=== PATIENT | female | born 1960 | race Caucasian/White ===

== ENCOUNTER 2022-03-06 12:41 | Day surgery (SDC) | payer BC ==
[~2022-03-06] VITALS: Ht 172.7 cm; Wt 91.1 kg
[~2022-03-06 12:41] MED LIST: ASCO500; B Complete1 EACH; CHOL10002; OMEP20ER; Prinivil10 MG; Zanaflex2 M1
[2022-03-06] MEDS ORDERED: Famotidine10 MG/1 ML (12:57)
[2022-03-06] MEDS ORDERED: CLIMARA1 EACH (12:57)
== END 2022-03-06 15:58 | disposition home or self-care (01) ==
LOC: ORSCSDS 12:41
PROVIDERS: Student in an Organized Health Care Education/Training Program
PROC: 0DB68ZX Excision of Stomach, Via Natural or Artificial Opening Endoscopic, Diagnostic (ICD-10-PCS; principal; 2022-03-06 14:00)
PROC: 0DBN8ZX Excision of Sigmoid Colon, Via Natural or Artificial Opening Endoscopic, Diagnostic (ICD-10-PCS; principal; 2022-03-06 14:00)
PROC: 0DB58ZX Excision of Esophagus, Via Natural or Artificial Opening Endoscopic, Diagnostic (ICD-10-PCS; principal; 2022-03-06 14:00)
PROC: 0DBL8ZX Excision of Transverse Colon, Via Natural or Artificial Opening Endoscopic, Diagnostic (ICD-10-PCS; principal; 2022-03-06 14:00)
PROC: 0DB48ZX Excision of Esophagogastric Junction, Via Natural or Artificial Opening Endoscopic, Diagnostic (ICD-10-PCS; principal; 2022-03-06 14:00)
PROC: 0D758ZZ Dilation of Esophagus, Via Natural or Artificial Opening Endoscopic (ICD-10-PCS; principal; 2022-03-06 14:00)
DX: R13.10 Dysphagia, unspecified (principal); K29.50 Unspecified chronic gastritis without bleeding; K31.A19 Gastric intestinal metaplasia without dysplasia, unspecified site; K29.70 Gastritis, unspecified, without bleeding; K22.2 Esophageal obstruction; K44.9 Diaphragmatic hernia without obstruction or gangrene; K21.9 Gastro-esophageal reflux disease without esophagitis; D12.3 Benign neoplasm of transverse colon; K63.5 Polyp of colon; Z12.11 Encounter for screening for malignant neoplasm of colon; Z83.71 Family history of colonic polyps; I10 Essential (primary) hypertension; Z79.899 Other long term (current) drug therapy; R73.9 Hyperglycemia, unspecified
CPT/HCPCS: 88305; 88342; C1726; J2405; J2704; J7120

== ENCOUNTER 2022-04-26 06:11 | Day surgery (SDC) | payer BC ==
[~2022-04-26] VITALS: Ht 172.7 cm; Wt 92.4 kg
[~2022-04-26 06:11] MED LIST changes: +CLIMARA1 EACH; +Famotidine10 MG/1 ML
[2022-04-26] MEDS ORDERED: FAMO40 PO (07:14)
--- NOTE | 2022-04-26 10:27 | NUR ---
04/26/22 1027 Palomo Pool PT REPORTED 5/10 PAIN PRIOR TO DISCHARGE. SHE REFUSED FURTHER IV PAIN MEDICATION AND EXPRESSED READINESS TO RETURN HOME AND MANAGE PAIN WITH ORAL MEDICATION.
== END 2022-04-26 10:20 | disposition home or self-care (01) ==
LOC: ORSCSDS 06:11
PROVIDERS: Otolaryngology
PROC: 09SL4ZZ Reposition Nasal Turbinate, Percutaneous Endoscopic Approach (ICD-10-PCS; principal; 2022-04-26 07:30)
PROC: 09BM4ZZ Excision of Nasal Septum, Percutaneous Endoscopic Approach (ICD-10-PCS; principal; 2022-04-26 07:30)
DX: J34.2 Deviated nasal septum (principal); J34.3 Hypertrophy of nasal turbinates; I10 Essential (primary) hypertension; K21.9 Gastro-esophageal reflux disease without esophagitis; M79.7 Fibromyalgia; Z79.899 Other long term (current) drug therapy
CPT/HCPCS: J0171; J1100; J2250; J2405; J2704; J3010